=== PATIENT | male | born 1965 | race Caucasian/White ===

== ENCOUNTER 2020-05-12 19:43 | Emergency (ER) | payer OTHER ==
[~2020-05-12] VITALS: Ht 180.3 cm; Wt 101.2 kg
[~2020-05-12 19:43] MED LIST: ATORVASTATIN CA40 MG PO; LISINOPRIL5 MG PO; METFORMIN HCL500 MG PO; PERCOCET 5-3251 EACH PO; PRILOSEC20 MG PO; TRICOR145 MG PO
[2020-05-12] MEDS ORDERED: ASA81BEC PO (19:51)
[2020-05-12 20:41] LABS: ABSOLUTE NEUTROPHILS 2.5 thou/uL (1.4-8.2); BASOPHILS 0.7 % (0.0-2.0); EOSINOPHILS 1.2 % (0.0-3.0); HEMATOCRIT 43.5 % (42.0-52.0); HEMOGLOBIN 14.7 gm/dL (14.0-18.0); MCH 32.9 pg (26.0-34.0); MCHC 33.8 g/dL (28.0-37.0); MCV 97.4 fL (80.0-100.0); POLYS 64.1 % (36.0-66.0); RBC 4.47 mil/uL (4.50-6.00); RDW 13.7 % (10.5-14.5); WBC 3.9 thou/uL (4.0-11.0)
[2020-05-12 20:50] LABS: ANION GAP 12 mmol/L (7-16); BUN 14 mg/dL (7-18); CALCIUM 9.1 mg/dL (8.5-10.1); CHLORIDE 98 mmol/L (98-107); CO2 24 mmol/L (21-32); CREATININE 0.8 mg/dL (0.7-1.3); GLUCOSE 296 mg/dL (74-106); POTASSIUM 3.8 mmol/L (3.5-5.1); SODIUM 134 mmol/L (136-145)
[2020-05-12 20:57] LABS: TROPONIN-I <0.06 ng/mL (<0.06)
[2020-05-12 21:07] LABS: PLATELET COUNT 76 thou/uL (150-400)
[2020-05-12] MEDS ORDERED: XANAX 0.25 MG0.25 MG PO (22:44)
[2020-05-12 22:57] VITALS: BP 115/79
--- NOTE | 2020-05-13 08:38 | EKG ---
[facility] [place] [address] ELECTROCARDIOGRAM REPORT Name: ANALI GROVER Room #: [facility]P [id number] Admission: 05/12/20 Attend Phys: Discharge: 05/12/20 Date of : 63 Report #: [id number] THIS REPORT FOR: cc: Elise Gomez MD, Kerry B. MD Lundgren, Craig H. 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: : [id number] Requested By: Jaylyn Tellez Order Number: [id number] MD: Gutierrez Phillips Measurements Intervals [place] Rate: 103 P: 40 OR: 163 QRS: -56 QRSD: 107 T: 0 QT: 356 QTc: 466 Interpretive Statements Sinus tachycardia LAD, consider left anterior fascicular block Abnormal R-wave progression, late transition Baseline wander in lead(s) V2 Compared to ECG 07/12/2014 20:22:19 Heart rate has increased Electronically Signed On 05-13-2020 8:38:17 CDT by Gutierrez Phillips [email or web address] <ELECTRONICALLY SIGNED> By: Gutierrez Phillips MD, FACC 05/13/20 [id number] Gutierrez Phillips MD, FAC /EPI
== END 2020-05-12 22:58 | disposition home or self-care (01) ==
LOC: ER 19:43
PROVIDERS: Emergency Medicine
DX: R42 Dizziness and giddiness (principal); F41.9 Anxiety disorder, unspecified; E11.9 Type 2 diabetes mellitus without complications; Z79.899 Other long term (current) drug therapy; Z79.82 Long term (current) use of aspirin; Z79.84 Long term (current) use of oral hypoglycemic drugs